=== PATIENT | male | born 1965 | race Caucasian/White ===

== ENCOUNTER 2021-05-12 13:25 | Emergency (ER) | payer OTHER ==
[~2021-05-12 13:25] MED LIST: COLACE 100MG C100 MG PO
[2021-05-12 15:27] LABS: HEMOGLOBIN 9.4 gm/dl (14.0-17.5); RED BLOOD COUNT 2.99 M/UL (4.20-5.50); WHITE BLOOD COUNT 7.4 K/UL (4.5-11.0)
[2021-05-12 16:01] LABS: BUN/CREATININE RATIO 30 (0-10)
[2021-05-12] MEDS ORDERED: SILVADENE CREAM20 GM TOP (18:34)
== END 2021-05-12 18:52 | disposition home or self-care (01) ==
LOC: ER1 13:25 → CDU 17:44
PROVIDERS: Family Medicine
DX: E11.621 Type 2 diabetes mellitus with foot ulcer (principal); L97.529 Non-pressure chronic ulcer of other part of left foot with unspecified severity; F17.200 Nicotine dependence, unspecified, uncomplicated
CPT/HCPCS: 71046; 73630; 80053; 84439; 84443; 85025; 85379; 85652; 86140; 99283